=== PATIENT | male | born 1965 | race Caucasian/White ===

== ENCOUNTER 2017-05-21 10:12 | Emergency (ER) | payer OTHER ==
--- NOTE | 2017-05-21 10:44 | CPEKG ---
Heart Rate: 64 RR Interval: 938 P-R Interval: 172 QRSD Interval: 86 QT Interval: 380 QTC Interval: 392 P Enigma: 58 QRS Enigma: 45 T Wave Enigma: 21 EKG Severity - NORMAL ECG - EKG Impression: SINUS RHYTHM Electronically Signed By: Isac Iqbal 21-May-2017 13:51:09
--- NOTE | 2017-05-21 10:56 | EDPHY ---
H & P Stated Complaint: irregular heart beats/palpitations starting 2 nights ago Time Seen by Provider: 05/21/17 10:56 - Personal History Current Tetanus/Diphtheria Vaccine: Yes Current Tetanus Diphtheria and Acellular Pertussis (TDAP): Yes Tetanus Vaccine Date: < 10 years - Medical/Surgical History Hx Asthma: No Hx Chronic Respiratory Disease: No Hx Diabetes: No Hx Cardiac Disease: No Hx Renal Disease: No Hx Cirrhosis: No Hx Alcoholism: No Hx HIV/AIDS: No Hx Splenectomy or Spleen Trauma: No Other PMH: Appendectomy, lasik surgery - Social History Smoking Status: Never smoked Constitutional: Initial Vital Signs Temperature (C) 36.5 C 05/21/17 10:20 Heart Rate 75 05/21/17 10:20 Respiratory Rate 20 05/21/17 10:20 Blood Pressure 136/99 H 05/21/17 10:20 O2 Sat (%) 98 05/21/17 10:20 O2 Delivery Mode Room Air Allergies/Adverse Reactions: No Known Allergies Allergy (Verified 05/21/17 10:19) Home Medications: Medication Instructions Recorded NK [No Known Home Meds] 05/21/17 Medical Decision Making - Diagnostics Imaging Results: Imaging Impressions Chest X-Ray 05/21/17 11:07 Impression: Clear lungs. No acute process. Imaging: I viewed and interpreted images myself ED Course/Re-evaluation: CHIEF COMPLAINT: Chest pain HISTORY OF PRESENT ILLNESS: The patient is a 51 y/o male arriving with his complaining of chest pain and occasional palpitations that began after being struck in the chest a week ago. He describes loading a tile saw into a cart at [employer] when it slipped and part of the saw hit his chin and chest. He had pain at the site for several days that felt like a bruise. Saturday night, 2 days ago, he felt what he thought was a "muscle spasm" along his chest, but when he checked his pulse it felt irregular for a couple beats. He noticed the exact same symptoms last night and described them more as a palpitations. He's noticed the same occasional palpitations throughout the day, but seems to notice them more "during calmer times." No associated dyspnea, nausea, vomiting , or other symptoms. He denies any symptoms prior to trauma and reports a normal stress test in 2010. He is normally healthy and denies history of cardiac disease, respiratory disease, hypertension, hyperlipidemia, diabetes. REVIEW OF SYSTEMS: A 10 point review of systems was performed and is negative with the exception of the elements mentioned in the history of present illness. PHYSICAL EXAM: HR, BP, O2 Sat, RR. Temp noted General Appearance: Alert, well hydrated, appropriate, and non-toxic appearing. Head: Atraumatic without scalp tenderness or obvious injury Eyes: Pupils equal, round, reactive to light and accommodation, EOMI, no trauma , no injection. Nose: Atraumatic, no rhinorrhea, clear. Throat: There is no erythema or exudates, no lesions, normal tonsils, mucus membranes moist. Neck: Supple, nontender, no lymphadenopathy. Respiratory: No retractions, no distress, no wheezes, and no accessory muscle use. Lungs are clear to auscultation bilaterally. Cardiovascular: Regular rate and rhythm, no murmurs, rubs, or gallops. Good capillary refill all extremities. Gastrointestinal: Abdomen is soft, nontender, non-distended, no masses, no rebound, no guarding, no peritoneal signs. Musculoskeletal: Normal active ROM of all extremities, atraumatic. Neurological: Alert, appropriate, and interactive. The patient has non-focal cranial nerves, motor, sensory, and cerebellar exam. Skin: No rashes, good turgor, no nodules on palpation. Past medical history: Denies Past surgical history: Appendectomy Family history: Noncontributory Social history: at bedside. PCP: Dr. Jurgen Pozo. DIAGNOSTICS/PROCEDURES/CRITICAL CARE TIME: The 12 lead EKG was interpreted by myself. Sinus mechanism. See hard copy and/ or "tracemaster" electronic copy for interpretation. Chest x-ray: DIFFERENTIAL DIAGNOSIS: The differential diagnosis for the patient's chest pain included but was not limited to contusion, anxiety, myocardial ischemia, pulmonary embolus, chest wall pain, pleural inflammation, and pulmonary infectious causes. MEDICAL DECISION MAKING: This is a healthy 51 y/o male with no known cardiac risk factors and a normal stress test in 2010 who presents with mild chest pain at the site of traumatic impact 1 week ago and occasional brief sensation of palpitations. He has a completely normal exam with no visible trauma and normal EKG. Low suspicion for cardiac cause for chest pain. Plan for IV, labs, EKG, chest x-ray, echocardiogram. - Data Points Laboratory Results: Laboratory Results 05/21/17 11:15 05/21/17 11:15 05/21/1718 05/21/17 11:15 11:15 11:15 WBC 4.61 10^3/uL 10^3/uL (3.80-9.50) RBC 4.64 10^6/uL 10^6/uL (4.40-6.38) Hgb 15.5 g/dL g/dL (13.7-17.5) Hct 42.8 % % (40.0-51.0) MCV 92.2 fL fL (81.5-99.8) MCH 33.4 pg pg (27.9-34.1) MCHC 36.2 g/dL g/dL (32.4-36.7) RDW 12.0 % % (11.5-15.2) Plt Count 160 10^3/uL 10^3/uL (150-400) MPV 10.5 fL fL (8.7-11.7) Neut % (Auto) 54.0 % % (39.3-74.2) Lymph % (Auto) 34.3 % % (15.0-45.0) [place] % (Auto) 8.2 % % (4.5-13.0) Eos % (Auto) 2.4 % % (0.6-7.6) Baso % (Auto) 0.7 % % (0.3-1.7) Nucleat RBC Rel Count 0.0 % % (0.0-0.2) Absolute Neuts (auto) 2.49 10^3/uL 10^3/uL (1.70-6.50) Absolute Lymphs (auto) 1.58 10^3/uL 10^3/uL (1.00-3.00) Absolute Monos (auto) 0.38 10^3/uL 10^3/uL (0.30-0.80) Absolute Eos (auto) 0.11 10^3/uL 10^3/uL (0.03-0.40) Absolute Basos (auto) 0.03 10^3/uL 10^3/uL (0.02-0.10) Absolute Nucleated RBC 0.00 10^3/uL 10^3/uL (0-0.01) Immature Gran % 0.4 % % (0.0-1.1) Immature Gran # 0.02 10^3/uL 10^3/uL (0.00-0.10) D-Dimer < 0.27 ug/mLFEU ug/mLFEU (0.00-0.50) Sodium 140 mEq/L mEq/L (135-145) Potassium 4.5 mEq/L mEq/L (3.5-5.2) Chloride 104 mEq/L mEq/L (97-110) Carbon Dioxide 24 mEq/l mEq/l (22-31) Anion Gap 12 mEq/L mEq/L (8-16) BUN 17 mg/dL mg/dL (7-23) Creatinine 0.9 mg/dL mg/dL (0.7-1.3) Estimated GFR > 60 Glucose 88 mg/dL mg/dL (70-100) Calcium 9.1 mg/dL mg/dL (8.5-10.4) Magnesium 1.9 mg/dL mg/dL (1.6-2.3) Troponin I < 0.012 ng/mL ng/mL (0.000-0.034) NT-Pro-B Natriuret Pep 22 pg/mL pg/mL (0-125) Departure - Departure Disposition: Home, Routine, Self-Care Clinical Impression: PAC (premature atrial contraction), Chest wall pain Condition: Good Instructions: Premature Atrial Contractions (ED), Chest Pain (ED) Additional Instructions: 1. Use ibuprofen as directed on the packaging as needed for pain for the next few days. 2. Follow up with a credit card analyst in the next week for palpitations. 3. Return to the ED for any worsening of condition. Referrals: Jurgen Pozo MD [Primary Care Provider] - As per Instructions Michael Reeves MD [Medical Doctor] - As per Instructions Report Scribed for: Isac Iqbal Report Scribed by: Mimi Harvey Date of Report: 05/21/17 Time of Report: 11:02
[2017-05-21 11:27] LABS: PLATELET COUNT 160 10^3/uL (150-400)
[2017-05-21 13:04] VITALS: BP 136/83; PULSE 64; RESP 15; TEMP 97.9; O2SAT 97
--- NOTE | 2017-05-21 14:23 | ECHO ---
[email or web address] [address] Main: [phone] Fax: [email or web address] Echocardiogram Name: MONTRELL LEONARDO MR#: [id number] Study Date: 05/21/2017 Study Time: 11:37 AM Date of : 1965 Age: 51 year(s) Height: 177.8 cm (70 in.) Weight: 83.46 kg (184 lb.) BSA: 2.01 m2 Gender: Male Examination: Echo Indication: Chest pain/palpatations Image Quality: Contrast: Requested by: Isac Iqbal BP: / Heart Rate: Rhythm: Indication: Chest pain/palpatations Procedure Staff Control Systems Specialist: Nancy Cole RDCS Reading Physician: Tiago Hwang MD Requesting Provider: Conclusions: Normal size left ventricle. The ejection fraction is estimated to be 65-70 %. The mitral valve is normal in appearance and function. Trivial mitral valve regurgitation. The aortic valve is normal in appearance and function. No old studies for comparison. Measurements: Chambers Valvular Assessment AV/MV Valvular Assessment TV/PV Normal Normal Normal Name Value Range Name Value Range Name Value Range Ao Yesi (MM): 3.5 cm (2.2 cm-3.7 AV Vmax: 1.17 m/s (1 m/s-1.7 cm) m/s) IVSd (2D): 0.9 cm (0.6 cm-1.1 AV maxP mmHg ( - ) cm) AV meanP mmHg ( - ) LVDd (2D): 4.9 cm (4.2 cm-5.9 MV E Vmax: 0.61 m/s ( - ) cm) MV A Vmax: 0.44 m/s ( - ) LVDs (2D): 3.2 cm (2.1 cm-4 MV E/A: 1.39 ( - ) cm) LVPWd (2D): 0.7 cm (0.6 cm-1 cm) LVEF (MOD4): 63 % (>=55 %) EF Range: 65-70 % Continued Measurements: Chambers Valvular Assessment AV/MV Name Value Name Value LADs: 3.2 cm MV E/E' Septal: 8.10 LADs Lon.8 cm MV E/E' Lateral: 5.20 Patient: MONTRELL LEONARDO Study Date: 05/21/2017 Page 1 of 2 11:37 AM LA Area: 14.6 cm2 Additional Vessels Name Value Ao Ascendin.2 cm Findings: Left Ventricle: Normal size left ventricle. No LV hypertrophy. Normal global systolic LV function. The ejection fraction is estimated to be 65-70 %. No regional wall motion abnormality. Right Ventricle: Normal size right ventricle. Left Atrium: The left atrium is normal in size. Right Atrium: The right atrium is normal in size. Mitral Valve: The mitral valve is normal in appearance and function. Trivial mitral valve regurgitation. Aortic Valve: The aortic valve is normal in appearance and function. Tricuspid Valve: The tricuspid valve is normal in appearance and function. Pulmonic Valve: The pulmonic valve is normal in appearance and function. Aorta: The aorta is normal. Pericardium: No pericardial effusion. Exam Comments: Occasional arrthymia during echo.. (No Signature Object) Patient: MONTRELL LEONARDO Study Date: 05/21/2017 Page 2 of 2 11:37 AM [id number]
== END 2017-05-21 13:04 | disposition home or self-care (01) ==
DX: S29.9XXA Unspecified injury of thorax, initial encounter (principal); I49.1 Atrial premature depolarization; W31.1XXA Contact with metalworking machines, initial encounter; Y92.009 Unspecified place in unspecified non-institutional (private) residence as the place of occurrence of the external cause; Y99.8 Other external cause status; Y93.89 Activity, other specified